=== PATIENT | female | born 1955 | race Caucasian/White ===

== ENCOUNTER → 2018-06-19 | Outpatient (CLI) | payer OTHER ==
--- NOTE | 2018-06-21 10:36 | MM ---
Reason for exam: screening (asymptomatic). Last mammogram was performed 1 year ago. History: Patient is postmenopausal and had first child at age 36. Family history of breast cancer in sister at age 53. Silicone gel implants in both breasts, 2008. Implants in both breasts, 1983. Took hormonal contraceptives for 25 years. Taking estrogen for 8 years beginning at age 52. Taking progesterone for 8 years beginning at age 52. Physical Findings: A clinical breast exam by your physician is recommended on an annual basis and results should be correlated with mammographic findings. MG 3D Screen Mammo Imp/Cad Bilateral CC and MLO view(s) were taken. Prior study comparison: June 18, 2017, bilateral MG 3d screen mammo imp/cad. June 15, 2016, bilateral MG 3d screen mammo imp/cad. The breast tissue is extremely dense which could obscure a lesion on mammography. Bilateral retropectoral silicone implants. No significant changes when compared with prior studies. ASSESSMENT: Negative, BI-RAD 1 RECOMMENDATION: Routine screening mammogram of both breasts in 1 year. Patient should continue monthly self breast exams. A negative report should not preclude additional follow up of suspicious palpable abnormalities.
== END | disposition home or self-care (01) ==
LOC: RADMAMWWP 12:52
PROVIDERS: ATTEND Obstetrics & Gynecology
DX: Z12.31 Encounter for screening mammogram for malignant neoplasm of breast (principal)
CPT/HCPCS: 77063; 77067

== ENCOUNTER → 2019-07-04 | Outpatient (CLI) | payer OTHER ==
--- NOTE | 2019-07-07 09:25 | MM ---
Reason for exam: screening (asymptomatic). Last mammogram was performed 1 year ago. History: Patient is postmenopausal and had first child at age 36. Family history of breast cancer in sister at age 53. Silicone gel implants in both breasts, 2008. Implants in both breasts, 1983. Took hormonal contraceptives for 25 years. Taking estrogen for 8 years beginning at age 52. Taking progesterone for 8 years beginning at age 52. Physical Findings: A clinical breast exam by your physician is recommended on an annual basis and results should be correlated with mammographic findings. MG 3D Screen Mammo Imp/Cad Bilateral CC and MLO view(s) were taken. Prior study comparison: June 19, 2018, bilateral MG 3d screen mammo imp/cad. June 18, 2017, bilateral MG 3d screen mammo imp/cad. The breast tissue is extremely dense which could obscure a lesion on mammography. Benign appearing bilateral calcifications. Stable middle depth rounded left asymmetry as seen on 06/15/19. No suspicious abnormality. Bilateral retropectoral silicone implants. ASSESSMENT: Benign, BI-RAD 2 RECOMMENDATION: Routine screening mammogram of both breasts in 1 year.
== END | disposition home or self-care (01) ==
LOC: RADMAMWWP 13:00
PROVIDERS: ATTEND Obstetrics & Gynecology
DX: Z12.31 Encounter for screening mammogram for malignant neoplasm of breast (principal); Z98.82 Breast implant status
CPT/HCPCS: 77063; 77067

== ENCOUNTER → 2019-07-08 | Outpatient (CLI) | payer OTHER ==
--- NOTE | 2019-07-08 15:59 | BD ---
EXAMINATION TYPE: Axial Bone Density DATE OF EXAM: 07/08/2019 COMPARISON: 06.18.2017 CLINICAL HISTORY: M 81.0 Height: 63 Weight: 115.0 FRAX RISK QUESTIONS: Alcohol (3 or more units per day): no Family History (Parent hip fracture): no Glucocorticoids (More than 3mos): no (Ex: prednisone, prednisolone, methylprednisolone, dexamethasone, and hydrocortisone). History of Fracture in Adulthood: yes Secondary Osteoporosis: 1. Type 1 Diabetes: no 2. Hyperthyroidism: no 3. Menopause before 45: no 4. Malnutrition: no 5. Chronic liver disease: no Rheumatoid Arthritis: no Current Tobacco Use: no RISK FACTORS HISTORY OF: Family History of Osteoporosis: yes Active: yes Diet low in dairy products/other sources of calcium: no Postmenopausal woman: age 52 Take estrogen and/or progesterone medications: yes How lon years MEDICATIONS: x2 blood pressure meds, hormones Additional History: EXAM MEASUREMENTS: Bone mineral densitometry was performed using the [employer] System. Bone mineral density as measured about the Lumbar spine is: ----- L1-L4(G/cm2): 1.078 T Score Values are as follows: ----- L2: -0.8 ----- L3: -0.3 ----- L4: -1.1 ----- L1-L4: -0.8 Bone mineral density has: increased 5.9 % since study of: 06.18.2017 Bone mineral density about the R hip (g/cm2): 0.734 Bone mineral density about the L hip (g/cm2): 0.757 T Score values are as follows: -----R Neck: -2.2 -----L Neck: -2.0 -----R Total: -2.0 -----L Total: -1.8 Bone mineral density has: increased 3.8 % since study of: 06.18.2017 IMPRESSION: Osteopenia (T Score between -2.5 and -1). There is slightly increased risk of fracture and the patient may be considered for treatment. Re-Screen 2-5 years. NOTE: T-SCORE=SD OF THE YOUNG ADULT MEAN.
== END | disposition home or self-care (01) ==
LOC: RADBDWWP 14:30
PROVIDERS: ATTEND Obstetrics & Gynecology
DX: M81.0 Age-related osteoporosis without current pathological fracture (principal)
CPT/HCPCS: 77080

== ENCOUNTER 2020-03-05 09:33 | Day surgery (SDC) | payer OTHER ==
[~2020-03-05 09:33] MED LIST: LACTATED RINGERS 1,000 ML IV SCH; LIDOCAINE 1% (10MG/ML) FOR IV START INTRADERMA PRN; MIDAZOLAM 2 MG/2 ML VIAL IV PRN
[2020-03-05 10:06] VITALS: TEMP 97
[2020-03-05] MEDS ORDERED: ONDANSETRON 4 MG/2 ML VIAL IVP ONE (10:10)
[2020-03-05] MEDS ORDERED: PROPOFOL 10 MG/ML 20 ML VIAL IV ONE (10:14)
--- NOTE | 2020-03-05 10:30 | P.PCN ---
Date of Procedure: 03/05/20 Procedure(s) Performed: BRIEF HISTORY: Patient is a 64-year-old pleasant white female scheduled for an elective colonoscopy as a part of screening for colorectal neoplasia. She had a family colonoscopy in August [address] Knox. PROCEDURE PERFORMED: Colonoscopy. PREOPERATIVE DIAGNOSIS: Screening for colon cancer. IV sedation per Anesthesia. PROCEDURE: After informed consent was obtained, the patient, was brought into the endoscopy unit. IV sedation was administered by Anesthesia under continuous monitoring. Digital rectal examination was normal. Initially the Olympus CF-160 flexible video colonoscope was then inserted in the rectum, gradually advanced into the cecum without any difficulty. Careful examination was performed as the scope was gradually being withdrawn. Ileocecal valve and the appendiceal orifice were visualized and appeared normal. Prep was excellent. Mucosa of the cecum, ascending colon, transverse colon, descending colon, sigmoid colon, and rectum appeared normal. Retroflexion was performed in the rectum and no lesions were seen. The patient tolerated the procedure well. IMPRESSION: Normal-appearing colon from rectum to cecum with no evidence of colitis or colorectal neoplasia. RECOMMENDATIONS: Findings of this examination were discussed with the patient as well as a family. She was advised to have a repeat screening colonoscopy in 10 years.
[2020-03-05 10:42] VITALS: BP 96/52; PULSE 73; RESP 12
== END 2020-03-05 11:02 | disposition home or self-care (01) ==
LOC: ORWHC2ENDO 09:33
PROVIDERS: ATTEND Internal Medicine Gastroenterology
DX: Z12.11 Encounter for screening for malignant neoplasm of colon (principal); I10 Essential (primary) hypertension; Z88.2 Allergy status to sulfonamides; Z88.8 Allergy status to other drugs, medicaments and biological substances; Z79.899 Other long term (current) drug therapy; Z79.890 Hormone replacement therapy; Z90.5 Acquired absence of kidney; Z90.89 Acquired absence of other organs
CPT/HCPCS: J2405; J2704; G0121

== ENCOUNTER → 2020-08-16 | Outpatient (CLI) | payer MEDICARE, BC ==
--- NOTE | 2020-08-18 08:58 | MM ---
Reason for exam: screening (asymptomatic). Last mammogram was performed 1 year and 1 month ago. History: Patient is postmenopausal and had first child at age 36. Family history of breast cancer in sister at age 53. Silicone gel implants in both breasts, 2008. Implants in both breasts, 1983. Took hormonal contraceptives for 25 years. Taking estrogen for 9 years beginning at age 52. Taking progesterone for 9 years beginning at age 52. Physical Findings: A clinical breast exam by your physician is recommended on an annual basis and results should be correlated with mammographic findings. MG 3D Screen Mammo Imp/Cad Bilateral CC, MLO, and ID view(s) were taken. Prior study comparison: July 04, 2019, bilateral MG 3d screen mammo imp/cad. June 19, 2018, bilateral MG 3d screen mammo imp/cad. The breast tissue is heterogeneously dense. This may lower the sensitivity of mammography. Bilateral retropectoral silicone implants. No significant changes when compared with prior studies. ASSESSMENT: Negative, BI-RAD 1 RECOMMENDATION: Routine screening mammogram of both breasts in 1 year.
== END | disposition home or self-care (01) ==
LOC: RADMAMWWP 13:35
PROVIDERS: ATTEND Obstetrics & Gynecology
DX: Z12.31 Encounter for screening mammogram for malignant neoplasm of breast (principal); Z98.82 Breast implant status
CPT/HCPCS: 77063; 77067

== ENCOUNTER → 2021-09-02 | Outpatient (CLI) | payer MEDICARE, BC ==
--- NOTE | 2021-09-05 14:52 | MM ---
Reason for exam: screening (asymptomatic). Last mammogram was performed 1 year and 1 month ago. History: Patient is postmenopausal and had first child at age 36. Family history of breast cancer in sister at age 53. Silicone gel implants in both breasts, 2008. Implants in both breasts, 1983. Took hormonal contraceptives for 25 years. Taking estrogen for 9 years beginning at age 52. Taking progesterone for 9 years beginning at age 52. Physical Findings: A clinical breast exam by your physician is recommended on an annual basis and results should be correlated with mammographic findings. MG 3D Screen Mammo Imp/Cad Bilateral CC, MLO, and ID view(s) were taken. Prior study comparison: August 16, 2020, bilateral MG 3d screen mammo imp/cad. July 04, 2019, bilateral MG 3d screen mammo imp/cad. The breast tissue is heterogeneously dense. This may lower the sensitivity of mammography. Bilateral breast prothesis. No significant changes when compared with prior studies. ASSESSMENT: Benign, BI-RAD 2 RECOMMENDATION: Routine screening mammogram of both breasts.
== END | disposition home or self-care (01) ==
LOC: RADMAMWWP 08:12
PROVIDERS: ATTEND Obstetrics & Gynecology
DX: Z12.31 Encounter for screening mammogram for malignant neoplasm of breast (principal); Z78.0 Asymptomatic menopausal state; Z80.3 Family history of malignant neoplasm of breast
CPT/HCPCS: 77063; 77067

== ENCOUNTER → 2022-07-12 | Outpatient (CLI) | payer MEDICARE, BC ==
--- NOTE | 2022-07-12 16:05 | P.SLEEP ---
History of Present Illness DATE: 07/12/2022 CONSULTATION/NEW PATIENT EVALUATION HISTORY OF PRESENT ILLNESS/SLEEP-WAKE EVALUATION: 67year old lady had been e valuated in the sleep center for possible obstructive sleep apnea hypopnea syndrome and significant excessive daytime sleepiness. SLEEP SCHEDULE: Usually sleep schedule from 9:30 PM until 7 AM 7 days a week on week. FALLING ASLEEP: Usually no problems with the falling asleep, although patient has TV set and bedroom. DURING SLEEP: She is to sleep on the stomach position. Patient sleeps with loud snoring and multiple awakenings from sleep with nocturia up to 3 times. No history of hypnogogical hallucinations, sleep paralysis, or cataplexy. Significant amount of movements during the sleep. DURING THE DAY/WAKE STATE: During the day patient feels significant sleepiness. Lincoln sleepiness scale is in very high range of 18. Patient trying to not to take naps but occasionally taken naps. PAST MEDICAL HISTORY: Hypertension, anxiety, knee arthritis, back problems, history of urinary tract infection. PAST SURGICAL HISTORY: Left nephrectomy for pyelonephritis in 1977. MEDICATIONS: Losartan 100 mg once a day, amlodipine 10 mg once a day, citalopram 10 mg once a day, progesterone 100 mg once a day, estradiol patch, Fosamax. SOCIAL HISTORY: Negative for smoking or using alcohol. FAMILY HISTORY: Stroke, cancer. REVIEW OF SYSTEMS: Snoring, multiple awakenings from sleep, significant excessive daytime sleepiness. No fevers. No double vision. No recent chest pain. No shortness of breath. No abdominal pain. No bleeding episodes. No blood in urine. No seizure episodes. PHYSICAL EXAMINATION: GENERAL: A pleasant patient without any distress. VITAL SIGNS: BP 123/57, HR 69, RR 16, weight 118 pounds, height 5 foot 3 and 2/3 inches, body mass index 20.5. HEENT: PERRLA, EOMI. Evaluation of oropharynx showed tongue protrudes midline, position of soft palate Mallampati 2, but short distance between soft palate and pharyngeal wall. Retrognathia about 3 mm. NECK: Supple. No JVD. Thyroid is not palpable. 12-1/3 inches in circumference. LUNGS: Clear to percussion and to auscultation. Good air exchange. No wheezing or rhonchi. HEART: S1, S2 regular. No murmurs, gallops or rubs. ABDOMEN: Soft and nontender. Bowel sounds are present. No organomegaly appreciated. EXTREMITIES: No clubbing or cyanosis. FIRST SAMPLER: Awake, alert, and oriented x3. Cranial nerves 2 to 7 intact. There is no fasciculation or atrophy noted. No focal deficits observed. ASSESSMENT: 1. Loud snoring, multiple awakenings from sleep, retrognathia, sleepiness. Possible obstructive sleep apnea-hypopnea syndrome. 2. Significant excessive daytime sleepiness, Lincoln Sleepiness Scale is in very high range of 18. Differential diagnosis include hypersomnia and narcolepsy2. 3 significant amount of movements during the sleep, possibly periodic limb movements.. 4. Hypertension. 5 anxiety. 6. Knee arthritis. 7. Back problems. 8. Status post left nephrectomy for pyelonephritis in 1977. PLAN: 1. Polysomnography for evaluation of patient's breathing during sleep with fallowing multiple sleep latency test if diagnostic polysomnogram negative for obstructive sleep apnea hypopnea syndrome. 2. CPAP/BiPAP titration if sleep study confirms obstructive sleep apnea- hypopnea syndrome. 3. Preferable position during sleep on the side. 4. No driving if patient feels any sleepiness. Patient is aware of civil and criminal liability for unsafe driving. 5. Sleep hygiene with regular sleep time for at least 7.5-8 hours. Thank you very much for referring this patient for consultation. Sincerely, Napoleon Olmos MD, PhD, FAASM. Diplomat of [employer] [place] [employer], Sleep Medicine Board by [place] [employer] [place] [employer] Manager of [facility] Past Medical History Past Medical History: Hypertension History of Any Multi-Drug Resistant Organisms: None Reported Past Surgical History: Section, Tonsillectomy Additional Past Surgical History / Comment(s): COLONOSCOPY. LT KIDNEY REMOVED- CHRONIC POLYNEPHRITIS Past Anesthesia/Blood Transfusion Reactions: Postoperative Nausea & Vomiting (PONV) Past Psychological History: No Psychological Hx Reported Past Alcohol Use History: None Reported Past Drug Use History: None Reported - Past Family History Sister(s) Family Medical History: Cancer Additional Family Medical History / Comment(s): 2 SISTERS WITH CANCER. 1. MELANOMA. 2. BREAST Medications and Allergies Home Medications Medication Instructions Recorded Confirmed Type Losartan Potassium 100 mg PO DAILY 03/03/20 03/05/20 History Nitrofurantoin Macrocrystal 50 mg PO DAILY 03/03/20 03/05/20 History [Macrodantin] Progesterone, Micronized 100 mg PO HS 03/03/20 03/05/20 History [Prometrium] Vit C/E/Zn/Coppr/Lutein/Zeaxan 1 each PO DAILY 03/03/20 03/05/20 History [Preservision Areds 2 Softgel] amLODIPine [Norvasc] 10 mg PO DAILY 03/03/20 03/05/20 History Allergies Allergy/AdvReac Type Severity Reaction Status Date / Time metoprolol [From Lopressor] Allergy Severe ANGIOEDEMA, Verified 03/05/20 10:02 ITCHING Sulfa (Sulfonamide Allergy Rash/Hives Verified 03/05/20 10:02 Antibiotics) Sleep Note - Sleep Note Sleep Note: Temperature: Pulse Rate: Respiratory Rate: Blood Pressure: SpO2: Height: Weight: BMI: Neck Circumference:
== END ==
LOC: SLEEP 15:12
PROVIDERS: ATTEND Internal Medicine
DX: R06.83 Snoring (principal); I10 Essential (primary) hypertension; Z88.2 Allergy status to sulfonamides; Z88.8 Allergy status to other drugs, medicaments and biological substances; F41.9 Anxiety disorder, unspecified; M17.9 Osteoarthritis of knee, unspecified; M26.19 Other specified anomalies of jaw-cranial base relationship; Z90.5 Acquired absence of kidney; N12 Tubulo-interstitial nephritis, not specified as acute or chronic
CPT/HCPCS: 99211

== ENCOUNTER → 2022-09-04 | Outpatient (CLI) | payer MEDICARE, BC ==
--- NOTE | 2022-09-05 08:40 | MM ---
Reason for Exam: Screening (asymptomatic). Last screening mammogram was performed 12 month(s) ago. Patient History: Menarche at age 14. First Full-Term at age 36. Late child-bearing (after 30). Postmenopausal. Currently using Estrogen, beginning at age 52 for 9 years. Currently using Progesterone, beginning at age 52 for 9 years. Patient used Hormonal Contraceptives for 25 years. 2008, Bilateral Implants. 1983, Bilateral Implants. Sister had breast cancer, age 53. Risk Values: Triny 5 year model risk: 3.1%. NCI Lifetime model risk: 10.4%. Prior Study Comparison: 07/04/2019 Bilateral Screening Mammogram, [facility]. 08/16/2020 Bilateral Screening Mammogram, [facility]. 09/02/2021 Bilateral Screening Mammogram, [facility]. Tissue Density: The breast tissue is extremely dense which could obscure a lesion on mammography. Findings: Analyzed By CAD. There is no suspicious group of microcalcifications or new suspicious mass in either breast. Bilateral implants are intact. Overall Assessment: Benign, BI-RAD 2 Management: Screening Mammogram of both breasts in 1 year. A clinical breast exam by your physician is recommended on an annual basis and results should be correlated with mammographic findings. Electronically signed and approved by: Brent Crum M.D. Radiologis
== END | disposition home or self-care (01) ==
LOC: RADMAMWWP 09:44
PROVIDERS: ATTEND Obstetrics & Gynecology
DX: Z12.31 Encounter for screening mammogram for malignant neoplasm of breast (principal); Z78.0 Asymptomatic menopausal state; Z80.3 Family history of malignant neoplasm of breast
CPT/HCPCS: 77063; 77067

== ENCOUNTER → 2024-01-10 | Outpatient (CLI) | payer MEDICARE, BC ==
--- NOTE | 2024-01-10 20:55 | MM ---
Reason for Exam: Screening (asymptomatic). Last mammogram was performed 1 year(s) and 4 month(s) ago. Patient History: Menarche at age 14. First Full-Term at age 36. Late child-bearing (after 30). Postmenopausal. Currently using Estrogen, beginning at age 52 for 9 years. Currently using Progesterone, beginning at age 52 for 9 years. Patient used Hormonal Contraceptives for 25 years. 2008, Bilateral Implants. 1983, Bilateral Implants. Sister had breast cancer, age 53. Risk Values: Triny 5 year model risk: 3.1%. NCI Lifetime model risk: 10.0%. Prior Study Comparison: 08/16/2020 Bilateral Screening Mammogram, [facility]. 09/02/2021 Bilateral Screening Mammogram, [facility]. 09/04/2022 Bilateral MG 3D screen mammo imp/cad., [facility]. Tissue Density: The breasts are heterogeneously dense, which may obscure small masses. Findings: Analyzed By CAD. The pattern is symmetrical. Abdomen appears symmetrical and stable. Bilateral breast prostheses are present. No suspicious groups of microcalcifications, spiculated or lobular masses, architectural distortion or other secondary signs of malignancy are mammographically apparent. Overall Assessment: Benign, BI-RAD 2 Management: Screening Mammogram of both breasts in 1 year. A negative mammogram report should not preclude additional follow up of suspicious palpable abnormalities. Patient should continue monthly self breast exam. A clinical breast exam by your physician is recommended on an annual basis and results should be correlated with mammographic findings. Note on Triny scores and lifetime risk: 1. A Triny score greater than 3% is considered moderate risk. If this is the case, consider specialist referral to assess eligibility for a risk reducing agent. 2. If overall lifetime risk for the development of breast cancer is 20% or higher, the patient may qualify for future screening with alternating mammogram and breast MRI. Electronically signed and approved by: Mario Traylor D.O. Radiologis
== END | disposition home or self-care (01) ==
LOC: RADMAMWWP 08:03
PROVIDERS: ATTEND Obstetrics & Gynecology
DX: Z12.31 Encounter for screening mammogram for malignant neoplasm of breast (principal); Z80.3 Family history of malignant neoplasm of breast; Z78.0 Asymptomatic menopausal state
CPT/HCPCS: 77063; 77067